=== PATIENT | male | born 2000 ===

== ENCOUNTER 2023-11-30 16:25 | Emergency (ER) | payer OTHER, SELFPAY ==
[2023-11-30 16:29] VITALS: BP 129/69; BMI 24.1
--- NOTE | 2023-11-30 18:48 | ED.GENMED ---
History of Present Illness
General
Chief Complaint: Throat Problem
Time Seen by Provider: 11/30/23 18:37
History of Present Illness
History of Present Illness:
23-year-old male presents the emergency department for evaluation of persistent sore throat and tonsil swelling ongoing for the past 2 weeks. He has had fevers throughout this time as well. He initially tested positive for mono 2 weeks ago however
due to worsening symptoms saw his primary care physician last week and was diagnosed with strep pharyngitis. He took Augmentin for a full course but has not felt any improvement. Denies any abdominal pain or vomiting at this time.
Review of Systems
Review of Systems
Allergies reviewed?: Yes
All Other Systems: ROS reviewed and negative except as documented in HPI and ROS
Phy Exam
Physical Exam
Physical Exam:
GEN: Well appearing, NAD, WDWN
HEENT: Oral mucosa moist, no scleral icterus. 2+ tonsillar hypertrophy with exudates bilaterally. Uvula midline, no evidence for peritonsillar abscess. Normal phonation. Thready anterior cervical and posterior cervical adenopathy
Cardiac: Regular rate
Lung: No respiratory distress, no tachypnea
Abdomen: No palpable splenomegaly
MSK: No gross deformity or injuries
Skin: Good color, no pallor or jaundice, no rashes
Neuro: AO x3, moves all extremities freely
Psych: Calm, cooperative
Course
Orders/Labs/Results
Orders:
Orders
11/30/23 18:50
Dexamethasone Pf [Decadron] 10 mg PO NOW STA
Vital Signs
Initial and Last Documented VS:
Initial Vital Signs
Temp Pulse Resp BP Pulse Ox
99.5 F 86 16 129/69 97
11/30/23 16:29 11/30/23 16:29 11/30/23 16:29 11/30/23 16:29 11/30/23 16:29
Last Documented Vital Signs
Temp Pulse Resp BP Pulse Ox
99.5 F 86 16 129/69 97
11/30/23 16:29 11/30/23 16:29 11/30/23 16:29 11/30/23 16:29 11/30/23 16:29
MDM/Problems Addressed
MDM/Problems Addressed:
Will add steroids for symptomatic relief, educated the patient on supportive care and progression of symptoms in regards to mono
*Critical Care Note
Total Time (30-74mins, 75-104mins- exclusive of procedures): Not Applicable
ED Attending Note
-
Portions of this chart may have been created with voice recognition software.� Occasional wrong word or��sound alike� substitutions may have occurred due to the inherent limitations of voice recognition software.
Discharge Plan
Departure
Patient Disposition: Home (Routine Discharge)
Date of Disposition: 11/30/23
Time of Disposition: 18:50
Patient with high blood pressure during this ER visit?: No
Discharge Problem:
Mononucleosis
Instructions: Mononucleosis (DC)
Prescriptions:
New
methylprednisolone [Methylpred DP] 4 mg tablets,dose pack
See Rx Instructions .ROUTE .COMPLEX Qty: 21 0RF
Rx Instructions:
orally per package directions
Interventions
Interventions:
*Risk Screen - Suicide Last Done: 11/30/23 16:29
*General Assessment Last Done: 11/30/23 19:04
*Neglect/Abuse Screening Last Done: 11/30/23 16:29
ED- Fall Risk Assessment Last Done: 11/30/23 16:29
*ED COVID-19 Vaccine History Last Done: 11/30/23 19:07
*Nursing Disposition Last Done: 11/30/23 19:07
ED-EENT Assessment Last Done: 11/30/23 19:04
ED- Pulmonary Assessment Last Done: 11/30/23 19:04
Discharge Date and Time
Discharge Date/Time: 11/30/23 19:08
Print Language: CZECH
[2023-11-30] MEDS: DECADRON 10 MG PO (19:01)
== END 2023-11-30 19:08 | disposition home or self-care (01) ==
LOC: EMR 16:25
PROVIDERS: EMERGENCY PHYSICIAN Student in an Organized Health Care Education/Training Program; FAMILY PHYSICIAN Nurse Practitioner Family
DX: B27.90 Infectious mononucleosis, unspecified without complication (principal)
CPT/HCPCS: 99283